=== PATIENT | female | born 1955 | race Caucasian/White ===

== ENCOUNTER 2019-08-30 14:25 | Emergency (ER) | payer SELFPAY ==
[2019-08-30 14:59] VITALS: TEMP 98.4
--- NOTE | 2019-08-30 15:38 | ED.PDOC ---
History of Present Illness - General Chief Complaint: General Stated Complaint: R shoulder pain/non traumatic Time Seen by Provider: 08/30/19 15:36 - History of Present Illness Initial Comments: Patient complains of right shoulder pain. States margie 10 days ago she was lowering herself into a chair when she felt sudden pain in her right shoulder. now complains of pain in the middle of her right shoulder blade. Worse with certain positions and with moving the right upper extremity. Also complains of pain radiating from her back to her right hand. The pain is sharp and stabbing in nature. States that she has some difficulty opening coke cans. No numbess. No other complaints at this time. Allergies/Adverse Reactions: Allergies NO KNOWN ALLERGY Allergy (Verified 08/30/19 14:59) Home Medications: Ambulatory Orders Acetaminophen W/ Codeine [Tylenol W/ CODEINE #3] 1 ea PO Q4HR PRN #20 08/30/19 Methocarbamol [Robaxin] 1,000 mg PO TID #30 tab 08/30/19 Review of Systems - Review of Systems Constitutional: States: no symptoms reported. Denies: chills, fever EENTM: States: no symptoms reported Respiratory: States: no symptoms reported Cardiology: States: no symptoms reported Gastrointestinal/Abdominal: States: no symptoms reported Genitourinary: States: no symptoms reported Musculoskeletal: States: see HPI, back pain, muscle pain, muscle stiffness Skin: Denies: lesions, rash Neurological: States: see HPI, weakness Endocrine: States: no symptoms reported Hematologic/Lymphatic: States: no symptoms reported All other Systems: Reviewed and Negative Past Medical History (General) - Patient Medical History Hx Stroke: No Hx of COPD: No Hx Cardiac Disorders: No Hx Pacemaker: No Hx Hypertension: No Hx Cancer: No Surgical History: other - Vaccination History Hx Tetanus, Diphtheria Vaccination: No Hx Influenza Vaccination: No Hx Pneumococcal Vaccination: No - Social History Hx Tobacco Use: No Hx Alcohol Use: Yes - Rarely Hx Substance Use: No Hx Substance Use Treatment: No Hx Depression: No - Female History Patient is a Female of Child Bearing Age (10 -59 yrs old): No Patient : No Family Medical History - Family History Mother Living Status: Hx Cardiac Disease: Yes Physical Exam - Physical Exam General Appearance: Alert, Comfortable, No apparent distress, Well Developed, Well Nourished Respiratory: no respiratory distress Extremity: other - ROM limited to shoulder due to pain, mild ttp over trapezius, no bony tenderness. Neurovascularly intact Neurologic: no motor/sensory deficits, alert, oriented x 3 Skin Exam: normal color, warm/dry Progress - Progress Progress: 08/30/19 15:38 Per my read of the X-ray there is no acute bony injury. She is neurovascularly intact. Will continue outpatient management with tylenol/codeine, muscle relaxants and ibuprofen. She will follow up with her PCP, needs outpatient MRI for radiculopathy. Home care instructions and return indications reviewed. - EKG/XRAY/CT Xray Comments: No acute bony injury Departure - Departure Clinical Impression: Muscle strain, Radiculopathy Time of Disposition: 16:09 Disposition: Discharge to Home or Self Care Departure Forms: ED Discharge - Pt. Copy, Patient Portal Self Enrollment Instructions: Radiculopathy (DC) Diet: resume usual diet Activity: increase activity as tolerated Prescriptions: Acetaminophen W/ Codeine [Tylenol W/ CODEINE #3] 1 ea PO Q4HR PRN #20 PRN Reason: Pain Methocarbamol [Robaxin] 1,000 mg PO TID #30 tab Home Medications: Ambulatory Orders Acetaminophen W/ Codeine [Tylenol W/ CODEINE #3] 1 ea PO Q4HR PRN #20 08/30/19 Methocarbamol [Robaxin] 1,000 mg PO TID #30 tab 08/30/19
--- NOTE | 2019-08-30 16:16 | RAD ---
EXAM: Three view(s) of the right shoulder. INDICATION: Pain. COMPARISON: None. FINDINGS: No acute fracture or dislocation. Radial opaque foreign body. Visualized portions of the right lung are clear. No right-sided pneumothorax. No large soft tissue swelling. IMPRESSION: 1. No acute fracture. Electronically signed by: Eduardo Luque MD 08/30/2019 4:14 PM [employer]
[2019-08-30 16:55] VITALS: BP 138/81; O2SAT 97
== END 2019-08-30 16:55 | disposition home or self-care (01) ==
LOC: ER 14:25
DX: S46.911A Strain of unspecified muscle, fascia and tendon at shoulder and upper arm level, right arm, initial encounter (principal); X50.9XXA Other and unspecified overexertion or strenuous movements or postures, initial encounter; Y92.9 Unspecified place or not applicable